=== PATIENT | male | born 1965 | race Caucasian/White ===

== ENCOUNTER 2019-09-18 09:47 | Day surgery (SDC) | payer BC, OTHER ==
[~2019-09-18] VITALS: Ht 177.8 cm; Wt 70.3 kg
--- NOTE | ~2019-09-18 | H ---
[facility] [place] [address] HISTORY AND PHYSICAL Name: ANTONIO DE JESUS Room #: PRE [facility] M.R.#: [id number] Admission: Attend Phys: Gentry Dial MD Discharge: Date of : 61 Report #: [id number] THIS REPORT FOR: //name// CC: FAM unknown Eric Kuhn DATE OF SERVICE: 09/17/2019 DATE OF SURGERY: 09/18/2019. PREOPERATIVE DIAGNOSIS: Symptomatic right inguinal hernia. HISTORY OF PRESENT ILLNESS: The patient is a 53-year-old who is here for repair of a right inguinal hernia. This started around Jarret. He did have an episode with cough. He felt the right groin give. Had a popping sensation. He did have pain with coughing. When he sits forward it causes discomfort. No nausea, no vomiting. No history of bloating. No known family history of hernias. The patient does not strain with bowel movement or urination. The protrusion reduces it dropped back in when he lies down. The patient was examined and found to have an inguinal hernia. He is recommended to have this repaired. PAST MEDICAL HISTORY: High blood pressure, elevated cholesterol. Denies heart disease, denies diabetes, denies lung disease, denies kidney disease, denies liver disease, denies bleeding issues. Denies history of blood clot. PAST SURGICAL HISTORY: Basal cell surgery 2018. MEDICATIONS: Amlodipine 10 mg once a day, atorvastatin 10 mg once a day, Valsartan HCTZ 160/25 mg once a day, aspirin 81 mg a day, ranitidine 150 mg once a day. FAMILY HISTORY: Dad of congestive heart failure at age 78. Mother of breast cancer at age 54. There is heart disease, diabetes on the father's side. 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 He smokes a pack a day. Has a 10-15 drinks per week. REVIEW OF SYSTEMS: No headache, shortness of breath, chest pain, palpitation. No numbness or weakness. PHYSICAL EXAMINATION: GENERAL: The patient is a well-developed, well-nourished male in no acute distress. HEENT: Pupils are reactive to light. Extraocular muscles are intact. [facility] [address] [place] [address] HISTORY AND PHYSICAL Name: ANTONIO DE JESUS Room #: PRE [facility].#: [id number] Admission: Attend Phys: Gentry Dial MD Discharge: Date of : 61 Report #: [id number] NECK: Soft and supple, no masses. LUNGS: Clear to auscultation. HEART: Regular rate and rhythm. No murmur or gallop. ABDOMEN: Soft, nondistended, nontender. No mass, no ascites. The patient does have a moderate sized right inguinal hernia that is reducible. Testicles are normal descended. No masses. EXTREMITIES: No cyanosis, clubbing or edema. Motor and sensory exam are unremarkable. IMPRESSION: The patient is a 53-year-old with a symptomatic right inguinal hernia. The patient noticed this around July having issues from the hernia due to cough. He has a continued discomfort. The patient is here for repair of a symptomatic right inguinal hernia. Laparoscopic approach was discussed and recommended. The patient understands the procedure and the risks involved, which include bleeding, infection, mesh infection and hernia recurrence. Placement of Cantu catheter during surgery was discussed. Postop course was discussed. The patient will be given antibiotic before surgery. By: 19 Gentry Dial MD /nt
--- NOTE | ~2019-09-18 | O ---
[facility] [place] [address] OPERATIVE REPORT Name: ANTONIO DE JESUS Room #: DEP [facility] M.R.#: [id number] Admission: 09/18/19 Attend Phys: Gentry Dial MD Discharge: 09/18/19 Date of : 61 Report #: [id number] THIS REPORT FOR: cc: Eric Barraza,Gentry Mueller MD ~ CC: Eric Kuhn DATE OF SERVICE: 09/18/2019 PREOPERATIVE DIAGNOSIS: Symptomatic right inguinal hernia. POSTOPERATIVE DIAGNOSIS: Symptomatic right inguinal hernia with indirect defect. PROCEDURES PERFORMED: Laparoscopic properitoneal repair of right inguinal hernia with large 3DMax lightweight mesh. SURGEON: Gentry Dial MD ANESTHESIA: General anesthesia. COMPLICATIONS: None. ESTIMATED BLOOD LOSS: 5 mL. PROCEDURE NOTE: With the patient under general anesthesia, Cantu catheter was placed, IV antibiotic was administered. Abdomen was prepped and draped in sterile fashion. Timeout was performed. A 0.25% Marcaine was used to anesthetize the skin. Transverse incision was made transversely adjacent to the umbilicus on the right side. After incising through the skin and subcutaneous tissue, the anterior rectus fascia was identified. This was opened under visualization. The rectus muscle was then with a hemostat. Posterior fascia was identified. The space between the muscle and the posterior fascia was dissected bluntly with fingertip. Balloon trocar was placed through the same space. Balloon was inflated. CO2 was administered. About 2 inches below the umbilicus, a 5 mm trocar was placed under visualization into the properitoneal space. Using cautery and blunt dissection, the entire properitoneal space was opened up. CO2 was used to keep the space open. The dissection was carried out down to the pubic bone. Dissection was carried to the left side of the midline. Laterally, dissection was freeing up the abdominal wall lateral to the inferior epigastric artery. A second 5 mm trocar was placed laterally. The patient was found to have a large sized indirect hernia sac, kind of broad base. This was dissected free and brought out of the [facility] [address] [place] [address] OPERATIVE REPORT Name: ANTONIO DE JESUS Room #: DEP [facility] M.R.#: [id number] Admission: 09/18/19 Attend Phys: Gentry Dial MD Discharge: 09/18/19 Date of : 61 Report #: [id number] internal ring and canal. The indirect hernia sac was free from the underneath cord structure. The hernia sac was reduced back into properitoneal space. After this was performed, the cord was isolated. A large 3DMax lightweight mesh was placed through the balloon trocar and then opened up in the properitoneal space. The mesh was oriented to cover the internal ring and lateral to it. SorbaFix was used to tack the mesh superior laterally. The mesh was tacked to the Harry's ligament over the pubic bone inferomedially and then to the rectus muscle superomedially. Mesh seated well. CO2 was evacuated. Trocars then removed. The patient did have some air in the abdominal cavity. This was released through opening the posterior fascia and the peritoneum at the incision adjacent to the umbilicus. The posterior fascia peritoneum was closed with [id number] 0 Vicryl. The anterior fascia was closed with [id number] 0 Vicryl x 2. Skin was irrigated. Skin was closed with 5-0 PDS. Steri-Strip, Band-Aids applied. The patient's Cantu catheter was removed. Awake and taken to recovery room. By: [id number] Gentry Dial MD /nt
[~2019-09-18 09:47] MED LIST: ACID CONTROLLER20 MG PO; AMLODIPINE BESY10 MG PO; ASPIR 8181 M1 PO; ATORVASTATIN CA10 MG PO; IBUPROFEN 800800 M1 PO; KEFLEX500 M1 PO; VALSARTAN-HCTZ1 EAC2 PO
[2019-09-18 10:47] VITALS: BP 116/66
[2019-09-18 10:56] LABS: CALCIUM 9.6 mg/dL (8.5-10.1); CREATININE 1.3 mg/dL (0.7-1.3)
[2019-09-18] MEDS ORDERED: NORCO 5-325 TA1 EAC1 PO (14:19)
[2019-09-18 14:33] VITALS: BP 116/66
--- NOTE | 2019-09-18 16:17 | EKG ---
[facility] [place] [address] ELECTROCARDIOGRAM REPORT Name: ANTONIO DE JESUS Room #: DEP [facility] M.R.#: [id number] Admission: 09/18/19 Attend Phys: Gentry Dial MD Discharge: 09/18/19 Date of : 61 Report #: [id number] THIS REPORT FOR: cc: Eric Barraza,Rodrigo Diamond MD ~ THIS REPORT FOR: //name// [facility] Test Date: 2019-09-18 Test Time: 10:50:43 Pat Name: ANTONIO DE JESUS Department: Room: 150 2 Gender: M Preparer: roro : 1965 Requested By: Gentry Dial Order Number: [id number] MD: Rodrigo Briggs Measurements Intervals [place] Rate: 69 P: -35 CO: 132 QRS: -31 QRSD: 91 T: 50 QT: 372 QTc: 399 Interpretive Statements Sinus rhythm Left axis deviation Borderline low voltage, extremity leads Abnormal R-wave progression, early transition No previous ECG available for comparison Electronically Signed On 09-18-2019 16:17:01 [employer] by Rodrigo Briggs [email or web address] <ELECTRONICALLY SIGNED> By: Rodrigo Briggs MD 09/18/19 1617 1050 1050 Rodrigo Briggs MD /EPI
== END 2019-09-18 15:00 | disposition home or self-care (01) ==
LOC: OR 09:47 → TBA 09:58 → OR 10:17
PROVIDERS: Surgery
DX: K40.90 Unilateral inguinal hernia, without obstruction or gangrene, not specified as recurrent (principal); I10 Essential (primary) hypertension; E78.00 Pure hypercholesterolemia, unspecified; K21.9 Gastro-esophageal reflux disease without esophagitis; F17.210 Nicotine dependence, cigarettes, uncomplicated; Z98.890 Other specified postprocedural states; Z79.899 Other long term (current) drug therapy; Z79.82 Long term (current) use of aspirin; Z91.040 Latex allergy status; Z83.3 Family history of diabetes mellitus; Z80.3 Family history of malignant neoplasm of breast
CPT/HCPCS: 50010; 50101; 50249; 50411; 50455; 50507; 50555; 50848; 53065; 53307; 56525; 56526; 62110; 62900; 70005